=== PATIENT | female | born 1940 | race Caucasian/White ===

== ENCOUNTER 2017-04-11 16:08 | Inpatient (IN) | payer MEDICARE, OTHER ==
[~2017-04-11] VITALS: Ht 147.3 cm; Wt 55.0 kg
[~2017-04-11 16:08] MED LIST: AZOP1OP10 BOTH EYES; BRIM10DR2 BOTH EYES; DEXT1DRO6 OP; LOSA50TA6 PO; TRAV2.5D BOTH EYES
--- NOTE | 2017-04-11 17:34 | HP ---
Date/Time of Note Date/Time of Note DATE: 04/11/17 TIME: 17:20 Assessment/Plan VTE Prophylaxis VTE Prophylaxis Intervention: LMWH Assessment/Plan Problems: (1) Glaucoma Status: Chronic Comment: Cont. home drops (2) Essential (primary) hypertension Status: Chronic Comment: Cont. home med. Add meds as needed. Defer to cardiology (3) Type 2 diabetes mellitus without complications Status: Chronic Comment: Diet-controlled. Cont. low-carb diet (4) Syncope and collapse Status: Acute Comment: Needs EKG, ECHO, carotid duplex, MRI/MRA, cards consult (5) Weakness Status: Acute Comment: see above (6) Altered mental status Status: Acute Comment: see above but consider urosepsis as possible etiology (see below). If [facility] reporting UTI, must consider this as cause of all symptoms. (7) Urinary tract infection Status: Acute Comment: Obtain CBC, UA, urine C&S HPI/ROS Admit Date/Time Admit Date/Time 04/11/2017 @ 1730 Hx of Present Illness [place] [facility] [place] when she had witnessed episode of syncope. This occurred 3 times and pt. went to [facility]. There was diagnosed w/ syncope and sent home. However, pt. failed to mention subjective R facial numbness and weakness of RUE. At home over the last several days, pt. seems to have lost mental acuity. She seems lethargic and somewhat confused. Syncopal episodes continued. Made appt. w/ cards but was a week out. Came to my office today w/ this complaint. Notes that today [facility] called and said pt. has UTI. ROS Constitutional: disoriented Eyes: no complaints ENT: no complaints Respiratory: no complaints Cardiovascular: chest pain, lightheadedness Gastrointestinal: no complaints Genitourinary: no complaints Musculoskeletal: no complaints Neurologic: focal-weakness (RUE), syncope PMH/Family/Social Past Medical History Medical History: diabetes, hypertension, other (OA, glaucoma, cervical disc disease) Past Surgical History Past Surgical Hx: other (cystocele repair, bladder suspension, bunion reduction ) Family History Significant Family History: heart disease, diabetes, hypertension Social History b. Sp, in [place] 23 y, worked as a seamstress, now ret'd, , lives w/ daughter, 5 children, 12 GC Alcohol Use: none Smoking Status: Never smoker Drug Use: none Exam/Review of Systems Vital Signs Vitals Vital Signs Date Time Temp Pulse Resp B/P Pulse Ox O2 Delivery O2 Flow Rate FiO2 04/11/17 16:16 98.0 71 18 181/81 99 Exam Constitutional: alert, oriented, other (obese) Psych: nl mood/affect, no complaints Eyes: EOMI, PERRL, nl conjunctiva, nl lids, nl sclera ENMT: mucosa pink and moist, nl external ears & nose Neck: non-tender, supple, No bruits, No masses, No thyromegaly Respiratory: clear to auscultation, normal air movement Cardiovascular: nl pulses, regular rate and rhythm, No edema, No murmurs/extra sounds, No rub Gastrointestinal: bowel sounds, nl liver, spleen, non-tender, soft, No mass, No rebound or guarding Musculoskeletal: nl extremities to inspection Extremities: normal pulses, No clubbing, No cyanosis, No edema Neurological: RACQUET MAKER II-XII intact, nl mental status, nl speech, nl strength, other (exam is non-focal) KIN BARRERA MD Apr 11, 2017 17:30
[2017-04-11] MEDS ORDERED: IBUPROFEN 600 MG TAB PO PRN (21:30)
[2017-04-11] MEDS ORDERED: MAGNESIUM HYDROXIDE 30ML CUP PO PRN (21:30)
[2017-04-11] MEDS ORDERED: NACL 0.9% 3 ML SYG IV SCH (21:30)
[2017-04-11] MEDS ORDERED: ONDANSETRON 4 MG INJ IV PRN (21:30)
--- NOTE | 2017-04-11 22:50 | RADRPT ---
PROCEDURE: Carotid ultrasound CLINICAL INDICATION: Syncope, carotid bruits TECHNIQUE: Hensley scale, color doppler, spectral doppler ultrasound of the bilateral carotid and valeri tebral arteries. This study indirectly references the measurement of the distal ICA diameter as the denominator for s tenosis measurement. Validated velocity measurements with angiographic measurements, velocity criter ia are extrapolated from diameter data as defined by: *Cartoid artery stenosis: hensley-scale and Doppl er US diagnosis. Society of Radiologists in Ultrasound Consensus Conference. Radiology 2003; 229: 34 0-346. SRU Consensus Conference Criteria for the Diagnosis of Carotid Artery Stenosis* Degree of Stenosis, % ICA PSV, cm/sec Plaque Estimate, % ICA/CCA PSV Ratio Normal <125 None <2.0 <50 <125 <50 <2.0 50 69 125-230 >50 2.0-4.0 >70 but less than near occlusion >230 >50 <4.0 Near occlusion High, low, or undetectable Visible Variable Total occlusion Undetectable Visible, no detectable lumen Not applicable COMPARISON: No prior studies are available for comparison. FINDINGS: Location Right CCA53 - 62 cm/sec Prox ICA 40 cm/sec Mid ICA32 cm/sec Dist ICA39 cm/sec ECA47 cm/sec ICA/CCA0.8 Left CCA41 - 75 cm/sec Prox ICA 36 cm/sec Mid ICA34 cm/sec Dist ICA44 cm/sec ECA42 cm/sec ICA/CCA1.1 Plaque burden: No significant plaque is seen. Antegrade flow is seen within the vertebral arteries bilaterally. IMPRESSION: Normal examination. RPTAT: AADD .Peyman Messer MD, MD Date Time Electronically viewed and signed by .Peyman Messer MD, MD on 04/11/2017 22:49 .B/
--- NOTE | 2017-04-11 22:57 | ERD ---
ER Documentation Chief Complaint Chief Complaint SYNCOPE 2 DAYS AGO SEE AT [facility],UTI NOT STARTED ON ATB STILL DIZZY, WEAKNE HPI This is a 68-year-old female with a single episode 2 days ago and seen at [place]. Patient was discharged home. Also diagnosed V. tach not start antibiotics. Sent in by primary care admission for further evaluation and possible admission. ROS All systems reviewed and are negative except as per history of present illness. Medications Home Meds Reported Medications Dextran 70/Hypromellose (Artificial Tears) 1 Drp Droperette, 1 DRP OP Q15 for DRY EYES 12/03/15 Brinzolamide* (Azopt*) 1%-5 Ml Drops.susp, 1 DROP BOTH EYES TID, BOTTLE 12/03/15 Brimonidine/Timolol* (Combigan*) 10 Ml Drops, 1 DROP BOTH EYES QHS, EA 12/03/15 Travoprost* (Travatan Z*) 2.5 Ml Drops, 1 DROP BOTH EYES BID, #1 BOTTLE 12/03/15 Losartan Potassium* (Losartan Potassium*) 50 Mg Tablet, 50 MG PO DAILY, TAB 12/03/15 Allergies Allergies: Coded Allergies: No Known Allergy (Unverified , 12/03/15) PMhx/Soc History of Surgery: Yes (BLADDER LIFT 10 YRS AGO) Anesthesia Reaction: No Hx Neurological Disorder: No Hx Respiratory Disorders: No Hx Psychiatric Problems: No Hx Miscellaneous Medical Probl: No Hx Alcohol Use: No Hx Substance Use: No Hx Tobacco Use: No Smoking Status: Never smoker Physical Exam Vitals Vital Signs Date Time Temp Pulse Resp B/P Pulse Ox O2 Delivery O2 Flow Rate FiO2 04/11/17 16:16 98.0 71 18 181/81 99 Physical Exam Const: [] Head: Atraumatic Eyes: Normal Conjunctiva ENT: Normal External Ears, Nose and Mouth. Neck: Full range of motion..~ No meningismus. Resp: Clear to auscultation bilaterally Cardio: Regular rate and rhythm, no murmurs Abd: Soft, non tender, non distended. Normal bowel sounds Skin: No petechiae or rashes Back: No midline or flank tenderness Ext: No cyanosis, or edema Neur: Awake and alert Psych: Normal Mood and Affect Results 24 hrs Current Medications Medications (Trade) Dose Ordered Sig/Reese Route PRN Reason Start Time Stop Time Status Last Admin Dose Admin IV Flush (NS 3 ml) 3 ml PER PROTOCOL IV 04/11/17 21:30 Ondansetron HCl (Zofran Inj) 4 mg Q6H PRN IV NAUSEA AND/OR VOMITING 04/11/17 21:30 Ibuprofen (Motrin) 600 mg Q6H PRN PO PAIN LEVEL 1-3 OR FEVER 04/11/17 21:30 Magnesium Hydroxide (Milk Of Mag) 30 ml DAILY PRN PO CONSTIPATION 04/11/17 21:30 UNV Enoxaparin Sodium (Lovenox) 30 mg DAILY SC 04/12/17 09:00 Brimonidine/ Timolol (Combigan Oph) 1 drop QHS BOTH EYES 04/12/17 21:00 UNV Brinzolamide (Azopt) 1 drop TID BOTH EYES 04/12/17 09:00 UNV Losartan Potassium (Cozaar) 50 mg DAILY PO 04/12/17 09:00 UNV Travoprost (Travatan) 1 drop BID BOTH EYES 04/12/17 09:00 UNV Procedures/MDM EKG: Rate/Rhythm: [Normal Sinus Rhythm] QRS, ST, T-waves: [No changes consistent w/ acute ischemia] Impression: [No evidence of ischemia or arrhythmia] Chest X-ray 1V Interpreted by me: Soft Tissue: No acute abnormalities Bones: No acute abnormalities Mediastinum/Cardiac Silhouette/Lungs: [No acute abnormalities] Patient's syncopal symptoms are unstable at this time and require inpatient workup. No evidence of PE or dissection at this time but occult ischemia or fatal dysrhythmia cannot be ruled out. Departure Diagnosis: Primary Impression: Syncope and collapse Condition: Stable DELICIA KO Apr 11, 2017 22:57
[2017-04-11] MEDS ORDERED: ASPI-664 PO (23:08)
[2017-04-12] VITALS (10 sets, daily range): BP systolic 116–143; BP diastolic 68–90; PULSE 64–77; RESP 17–20; TEMP 98; Ht 147.3 cm; Wt 55.0 kg
--- NOTE | 2017-04-12 06:45 | RADRPT ---
PROCEDURE: XR Chest. CLINICAL INDICATION: Shortness of breath TECHNIQUE: A single AP view of the chest was obtained. COMPARISON: None. FINDINGS: No focal airspace opacification, pleural effusion or pneumothorax is seen. The cardiomediastinal si lhouette is upper limits of normal in size. Calcifications are seen within the aortic arch. The oss eous structures demonstrate senescent changes. IMPRESSION: 1. No radiographic evidence of acute cardiopulmonary disease. 2. The cardiac silhouette is upper limits of normal in size. 3. Aortic atherosclerosis. RPTAT: HH .Zoë Presley MD, MD Date Time Electronically viewed and signed by .Zoë Prseley MD, MD on 04/12/2017 06:45 .G/
[2017-04-12 07:12] LABS: BASOPHILS % 0.6 % (0.0-2.0); EOSINOPHILS # 0.2 10^3/ul (0.0-0.5); EOSINOPHILS % 2.7 % (0.0-7.0); HEMATOCRIT 33.1 % (37.0-47.0); HEMOGLOBIN 11.2 g/dl (12.0-16.0); LYMPHOCYTES # 2.1 10^3/ul (0.8-2.9); LYMPHOCYTES % 29.1 % (15.0-51.0); MEAN CORPUSCULAR HEMOGLOBIN 31.2 pg (29.0-33.0); MEAN CORPUSCULAR HGB CONC 33.8 g/dl (32.0-37.0); MEAN CORPUSCULAR VOLUME 92.2 fl (82.0-101.0); MONOCYTE # 0.7 10^3/ul (0.3-0.9); MONOCYTES % 9.9 % (0.0-11.0); NEUTROPHIL # 4.1 10^3/ul (1.6-7.5); NEUTROPHILS % 57.4 % (39.0-77.0); PLATELET COUNT 231 10^3/UL (140-415); RED BLOOD COUNT 3.59 10^6/ul (4.20-5.40); RED CELL DISTRIBUTION WIDTH 12.6 % (11.5-14.5); WHITE BLOOD COUNT 7.2 10^3/ul (4.8-10.8)
[2017-04-12 07:39] LABS: ALBUMIN 3.4 g/dl (3.3-4.9); BILIRUBIN,INDIRECT 0.5 mg/dl (0-1.1); BILIRUBIN,TOTAL 0.5 mg/dl (0.2-1.3); CALCIUM 9.2 mg/dl (8.4-10.2); CREATININE 0.77 mg/dl (0.44-1.00); MAGNESIUM 1.8 mg/dl (1.7-2.5); TOTAL PROTEIN 6.8 g/dl (6.1-8.1)
[2017-04-12 08:09] LABS: THYROID STIMULATING HORMONE 3.77 MIU/L (0.465-4.680)
[2017-04-12] MEDS: LATANOPROST 0.005% 2.5 ML OPH BOTH EYES SCH ×2 (09:00→20:21)
[2017-04-12 09:29] LABS: ADD UMIC YES; UR ASCORBIC ACID NEGATIVE (NEGATIVE); UR BACTERIA FEW /HPF (NONE SEEN); UR BILIRUBIN (Dip) NEGATIVE (NEGATIVE); UR BLOOD (Dip) NEGATIVE (NEGATIVE); UR CLARITY SLIGHTLY CLOUDY (CLEAR); UR COLOR YELLOW (YELLOW); UR GLUCOSE (Dip) NEGATIVE (NEGATIVE); UR KETONES (Dip) NEGATIVE (NEGATIVE); UR LEUKOCYTE ESTERASE (Dip) 2+ Leu/ul (NEGATIVE); UR MUCUS FEW /HPF (NONE SEEN); UR NITRITE (Dip) NEGATIVE (NEGATIVE); UR RBC 3 /HPF (0-5); UR SPECIFIC GRAVITY (Dip) 1.014 (1.003-1.030); UR SQUAMOUS EPITHELIAL CELL MODERATE /HPF (FEW); UR TOTAL PROTEIN (Dip) NEGATIVE (NEGATIVE); UR UROBILINOGEN (Dip) NEGATIVE (NEGATIVE)
[2017-04-12] MEDS: BRINZOLAMIDE 1% 10ML OPH BOTH EYES SCH ×3 (09:49→20:21)
[2017-04-12] MEDS: LOSARTAN 50 MG TAB PO SCH (09:49)
[2017-04-12] MEDS: BRIMONIDINE 0.2%-TIMOLOL 0.5% 5ML OPH BOTH EYES SCH ×2 (09:49→20:22)
[2017-04-12] MEDS: ENOXAPARIN 30 MG/0.3 ML SYG SC SCH (09:56)
[2017-04-12] MEDS ORDERED: ARTIFICIAL TEARS 15 ML OPH BOTH EYES SCH (10:30)
--- NOTE | 2017-04-12 13:20 | RADRPT ---
PROCEDURE: MRA Brain with and without contrast. CLINICAL INDICATION: Syncope, altered mental status TECHNIQUE: MR angiography of the brain was performed with and without intravenous contrast. Multi planar reconstructions, three-dimensional reconstructions, as well as maximal intensity projection i mages are produced and reviewed. CONTRAST: 10 ml Magnevist administered without adverse event. COMPARISON: None FINDINGS: Internal carotid arteries: Patent and normal in caliber. Anterior cerebral arteries: Right A1 segment is hypoplastic. Left A1 segment is dominant. Anterior communicating artery is visualized. Visualized A2 and A3 distribution of the anterior cerebral arteries are patent. Middle cerebral arteries: Both middle cerebral arteries as well as there branch vessels are patent and symmetric in appearance . Vertebral - basilar system: Both vertebral arteries are patent. There is codominance. Basilar artery is patent. Posterior cerebral arteries: Patent bilaterally. IMPRESSION: Normal MRA of the brain. No aneurysm, arteriovenous malformation, or abrupt vessel cutoff is identified. RPTAT: AADD .Peyman Messer MD, MD Date Time Electronically viewed and signed by .Peyman Messer MD, on 04/12/2017 13:20 .B/
--- NOTE | 2017-04-12 13:31 | RADRPT ---
PROCEDURE: MRI Brain without and with contrast. CLINICAL INDICATION: Syncope, altered mental status. TECHNIQUE: An MRI of the brain was performed utilizing the following sequences: Sagittal T1-weigh rosana, axial T2-weighted, axial FLAIR, axial T1, coronal GRE axial diffusion-weighted with ADC mapping . Following the uneventful administration of 10 cc Magnevist, postcontrast axial and coronal T1-weig hted images were obtained. Images were viewed on a PACS workstation. COMPARISON: No prior studies are available for comparison. FINDINGS: No diffusion weighted abnormalities are seen to suggest the presence of acute ischemia or recent inf arct. There is no intracranial hemorrhage, mass effect, or midline shift. No extra-axial fluid col lection is seen. The ventricles and sulci are mildly enlarged indicative of volume loss. Partially empty sella turcica is noted. There are scattered foci of T2 and FLAIR hyperintensity in the periventricular, deep, and subcortica l white matter, which are nonspecific in etiology but likely reflect chronic small vessel ischemic c hanges. The gradient echo images reveal no areas of susceptibility artifact to suggest blood degrad ation products or abnormal calcification. No abnormal intraparenchymal, meningeal or ependymal enha ncement is seen. No abnormal intracranial vascular flow voids are noted. The pituitary and sella reveal no abnormali ty. The suprasellar cistern is clear. The visualized paranasal sinuses demonstrate mild scattered m ucosal thickening mainly in ethmoid air cells. The mastoid air cells are clear. There is thinning of bilateral lens indicative of prior lens replacement. IMPRESSION: 1. No acute intracranial hemorrhage, infarction or mass. No intracranial enhancing abnormality. 2. Mild chronic small vessel ischemic changes. 3. Partially empty sella turcica. 4. Mild generalized cerebral volume loss. RPTAT: HH .Jenni Barcenas MD, MD Date Time Electronically viewed and signed by .Jenni Barcenas MD, MD on 04/12/2017 13:31 .N/
--- NOTE | 2017-04-12 17:01 | RADRPT ---
Echocardiogram Report Patient Name: AQUILES SANTACRUZ Gender: Female Date: 1940 Study Date: 12-Apr-2017 Machine Design Teacher: Bahman Chávez [facility] Location: 5538 Ref. Physician: KIN BARRERA Quality: Good Procedures: Transthoracic echocardiogram with complete 2D, M-Mode, and doppler examination. Indications: Evaluate Left Ventricular function. 2D/M Mode Doppler Measurement Value Normal Ranges Measurement Value Normal Ranges LVIDd 2D 3.6 3.5 - 5.6 cm AV Peak Tarik 1.4 m/sec LVIDs 2D 1.8 2.1 - 4.1 cm AV Peak PG 7.4 mmHg LVPWd 2D 0.9 0.6 - 1.1 cm LVOT Peak Tarik 0.9 m/sec IVSd 2D 1.0 0.6 - 1.1 cm LVOT Peak PG 3.6 mmHg AoR Diam 2D 2.8 2.0 - 3.7 cm MV E Peak Tarik 0.5 m/sec EDV 2D 56.2 cm3 MV A Peak Tarik 0.9 m/sec ESV 2D 5.7 cm3 MV E/A 0.6 LA Dimen 2D 2.1 2.3 - 4.0 cm MV Decel Time 209 msec MV Decel [place] 2 MV E/A 0.6 TR Peak Tarik 2.5 m/sec TR Peak PG 24.7 mmHg RVSP 28.0 mmHg Findings Left Ventricle: Normal left ventricular systolic function. Normal left ventricular cavity size. Normal left ventricular wall thickness. Ejection fraction is visually estimated at 5560 %. Tissue Doppler/Mitral Doppler indices are consistent with impaired relaxation (Stage I diastolic dysfunction). Right Ventricle: Normal right ventricular size. Normal right ventricular systolic function. Left Atrium: The left atrium is normal in size. Right Atrium: The right atrium is normal in size. Mitral Valve: Normal appearance and function of the mitral valve with trace physiologic regurgitation. Aortic Valve: No significant aortic stenosis or insufficiency. Aortic cusps appear mildly calcified. Tricuspid Valve: Normal appearance of the tricuspid valve. Estimated peak PA systolic pressure 28 mmHg. There is trace tricuspid regurgitation. Pulmonic Valve: Normal pulmonic valve appearance. Pericardium: Normal pericardium with no significant pericardial effusion. Aorta: Normal aortic root. IVC: Normal size and normal respiratory collapse consistent with normal right atrial pressure. Conclusions 1.Normal left ventricular systolic function. Normal left ventricular cavity size. Normal left ventricular wall thickness. Ejection fraction is visually estimated at 55-60 %. Tissue Doppler/Mitral Doppler indices are consistent with impaired relaxation (Stage I diastolic dysfunction). 2.Normal appearance and function of the mitral valve with trace physiologic regurgitation. 3.Normal appearance of the tricuspid valve. Estimated peak PA systolic pressure 28 mmHg. There is trace tricuspid regurgitation. Electronically Signed By: Oleg Schwartz 12-Apr-2017 17:00:23 -0800 Patient Name: AQUILES SANTACRUZ Study Date: 12-Apr-2017 [id number]
[2017-04-12] MEDS: CIPROFLOXACIN 500 MG TAB PO SCH (17:39)
--- NOTE | 2017-04-12 18:05 | PN ---
Date/Time of Note Date/Time of Note DATE: 04/12/17 TIME: 17:58 Assessment/Plan VTE Prophylaxis VTE Prophylaxis Intervention: LMWH Lines/Catheters IV Catheter Type (from Nrs): Saline Lock Assessment/Plan Problems: (1) Type 2 diabetes mellitus without complications Status: Chronic Comment: Diet controlled. A1c excellent (2) Essential (primary) hypertension Status: Chronic Comment: BP intermittently elevated. Defer to cards for improved control. (3) Glaucoma Status: Chronic Comment: Cont. drops from home (4) Weakness Status: Acute Comment: Improved today but still feels lightheaded. PT feels that pt. is stable w/o DME. Did teach pt. fall precautions (5) Altered mental status Status: Resolved Comment: Per daughter (6) Syncope and collapse Status: Acute Comment: Still lightheaded on standing. Poss. due to UTI. See below. (7) Diastolic dysfunction without heart failure Status: Chronic Comment: Found on ECHO. Defer to cards (8) Empty sella Status: Chronic Comment: Found on MRI. Unlikely to have pituitary dysfunction but will check cortisol as hypoadrenalism could be unlikely cause of patient's symptoms (9) Urinary tract infection Status: Acute Comment: Probable cause of pt.'s complaints. Will start cipro 500 mg bid and monitor for improvement in her physical symptoms. Await culture and titrate regimen to sensitivities. If not improving, consider neurology consultation Cont'd Hospitalization Reason: Symptoms not resolved. Initiating treatment for UTI. Subjective 24 Hr Interval Summary Constitutional: improved, no complaints Respiratory: no complaints Cardiovascular: lightheadedness (when stands up) Gastrointestinal: no complaints Genitourinary: no complaints Musculoskeletal: no complaints Neurologic: no complaints, No confusion (daughter feels pt. more herself mentally but still lightheaded when she stands up) Exam/Review of Systems Vital Signs Vitals VS - Last 72 Hours, by Label Date Time Temp Pulse Resp B/P Pulse Ox O2 Delivery O2 Flow Rate FiO2 04/12/17 16:35 98.4 67 20 116/68 96 04/12/17 16:05 77 04/12/17 12:08 65 04/12/17 12:06 98.7 66 20 125/73 99 04/12/17 08:08 98.1 66 20 140/90 100 04/12/17 08:01 64 04/12/17 04:05 65 04/12/17 04:00 98.6 87 17 143/75 99 04/12/17 02:06 98.0 66 14 135/74 96 Room Air 04/12/17 01:00 98.0 72 12 148/78 98 Room Air 04/12/17 00:00 98.0 64 15 165/84 99 Room Air 04/11/17 23:00 98.0 68 18 183/84 99 Room Air 04/11/17 16:16 98.0 71 18 181/81 99 Vital Signs Date Time Temp Pulse Resp B/P Pulse Ox O2 Delivery O2 Flow Rate FiO2 04/12/17 16:35 98.4 67 20 116/68 96 04/12/17 02:06 Room Air Exam Constitutional: alert, obese, oriented Psych: nl mood/affect, no complaints Respiratory: clear to auscultation, normal air movement Cardiovascular: nl pulses, regular rate and rhythm, No edema, No murmurs/extra sounds, No rub Gastrointestinal: bowel sounds, nl liver, spleen, non-tender, soft, No mass, No rebound or guarding Musculoskeletal: nl extremities to inspection Extremities: normal pulses, No clubbing, No cyanosis, No edema Neurological: TOPSTITCHER ZIGZAG II-XII intact, nl mental status, nl speech, nl strength Results Result Diagram: 04/12/1763604/12/1737 Results 24 hrs Laboratory Tests Test 04/12/17 06:37 04/12/17 07:15 White Blood Count 7.2 # Red Blood Count 3.59 L Hemoglobin 11.2 L Hematocrit 33.1 L Mean Corpuscular Volume 92.2 Mean Corpuscular Hemoglobin 31.2 Mean Corpuscular Hemoglobin Concent 33.8 Red Cell Distribution Width 12.6 Platelet Count 231 Mean Platelet Volume 10.0 # Neutrophils % 57.4 Lymphocytes % 29.1 Monocytes % 9.9 Eosinophils % 2.7 Basophils % 0.6 Nucleated Red Blood Cells % 0.0 Neutrophils # 4.1 Lymphocytes # 2.1 Monocytes # 0.7 Eosinophils # 0.2 Basophils # 0.0 Nucleated Red Blood Cells # 0.0 Sodium Level 142 Potassium Level 4.0 Chloride Level 107 Carbon Dioxide Level 26 Anion Gap 13 Blood Urea Nitrogen 18 Creatinine 0.77 Glucose Level 97 Hemoglobin A1c 5.9 Calcium Level 9.2 Magnesium Level 1.8 Total Bilirubin 0.5 Direct Bilirubin 0.00 Indirect Bilirubin 0.5 Aspartate Amino Transf (AST/SGOT) 21 Alanine Aminotransferase (ALT/SGPT) 26 Alkaline Phosphatase 55 Total Protein 6.8 Albumin 3.4 Globulin 3.40 H Albumin/Globulin Ratio 1.00 Thyroid Stimulating Hormone (TSH) 3.770 Urine Color YELLOW Urine Clarity SLIGHTLY CLOUDY A Urine pH 5.0 Urine Specific [place] 1.014 Urine Ketones NEGATIVE Urine Nitrite NEGATIVE Urine Bilirubin NEGATIVE Urine Urobilinogen NEGATIVE Urine Leukocyte Esterase 2+ H Urine Microscopic RBC 3 Urine Microscopic WBC 26 H Urine Squamous Epithelial Cells MODERATE Urine Bacteria FEW A Urine Mucus FEW A Urine Hemoglobin NEGATIVE Urine Glucose NEGATIVE Urine Total Protein NEGATIVE Medications Medications Current Medications Ondansetron HCl (Zofran Inj) 4 mg Q6H PRN IV NAUSEA AND/OR VOMITING; Start at 21:30 Ibuprofen (Motrin) 600 mg Q6H PRN PO PAIN LEVEL 1-3 OR FEVER; Start 04/11/17 at 21:30 Magnesium Hydroxide (Milk Of Mag) 30 ml DAILY PRN PO CONSTIPATION; Start 04/11 at 21:30 Enoxaparin Sodium (Lovenox) 30 mg DAILY SC Last administered on 04/12/17 09: 56; Admin Dose 30 MG; Start 04/12/17 at 09:00 Brimonidine/ Timolol (Combigan Oph) 1 drop QHS BOTH EYES Last administered on 04/12/17 09:49; Admin Dose 1 DROP; Start 04/12/17 at 21:00 Brinzolamide (Azopt) 1 drop TID BOTH EYES Last administered on 04/12/17 12:55 ; Admin Dose 1 DROP; Start 04/12/17 at 09:00 Losartan Potassium (Cozaar) 50 mg DAILY PO Last administered on 04/12/17 09: 49; Admin Dose 50 MG; Start 04/12/17 at 09:00 Latanoprost (Xalatan) 1 drop BID BOTH EYES ; Start 04/12/17 at 09:00 Eye Lubricant (Artificial Tears Oph) 2 drop Q10MIN BOTH EYES Last administered on 04/12/17 12:55; Admin Dose 2 DROP; Start 04/12/17 at 10:30 Ciprofloxacin (Cipro) 500 mg BID@,18 PO Last administered on 04/12/17 17:39 ; Admin Dose 500 MG; Start 04/12/17 at 18:00 KIN BARRERA MD Apr 12, 2017 18:05
--- NOTE | 2017-04-12 20:58 | CONS ---
DATE OF ADMISSION: 04/11/2017 DATE OF CONSULTATION: 04/12/2017 CARDIOLOGY CONSULTATION REASON FOR CONSULTATION: Syncope, recurrent. REQUESTING PHYSICIAN: Dr. Vásquez HISTORY OF PRESENT ILLNESS: Ms. Estes is a 76-year-old female with a history of diabetes mellitus, hypertension, hysterectomy, glaucoma, degenerative joint disease, who initially had recurrent episodes of syncope x2 to 3 while attending [employer] over the holiday weekend, after Thanksgiving. Patient states that she had felt the prodrome of chest pain, described as a pressure-like sensation, and associated dizziness while she was standing. The patient went to an outside hospital for evaluation and there had a normal hemoglobin 11.1, a creatinine 0.7 with a BUN of 21, a negative troponin, underwent a head CT that revealed no acute intracranial abnormality, and a chest x-ray revealing no acute abnormalities. The patient was then discharged to outpatient followup and had presented to her PMD's office and was lethargic, confused with questionable recurrent episodes of syncope, per family. Patient subsequently sent to the emergency department as she did see complaint at this time now, right facial numbness and right upper extremity weakness. Upon arrival in the emergency department, temperature 98, blood pressure 181/81, pulse 71, respiratory rate 18, satting 99%. The patient's labs revealed a white blood cell count of 7.2, hemoglobin 11.2, platelet count of 231, sodium 142, potassium 4.0, creatinine 0.7, BUN 18, magnesium 1.8, TSH of 3.7, UA positive. The patient underwent a carotid Doppler revealing no hemodynamically significant stenoses, and brain MRI/MRA revealing normal MRA of the brain, no aneurysm, AVMs or vessel cutoffs, and a partially empty sella turcica. Additionally, the patient had a chest x-ray that revealed no radiographic evidence of acute cardiopulmonary disease and the cardiac silhouette was upper limits of normal. The patient's electrocardiogram revealed normal sinus rhythm , rate of 71, normal axis, normal intervals with diffuse nonspecific ST and T- wave abnormalities. The patient has been admitted to the floor and since admit to floor, continues to complain of dizziness, denies ongoing facial numbness or weakness, or chest pain. The patient's blood pressures have been somewhat labile, most recently in the 140s and 120s with some initial episodes to the 180s. The patient does not have any troponins drawn here at this time. Additionally, the patient has been monitored on telemetry, revealing sinus rhythm, no significant tachy or bradyarrhythmias or pauses. PAST MEDICAL HISTORY: As above in HPI. MEDICATIONS CURRENTLY IN HOSPITAL: 1. Lovenox SQ daily. 2. Losartan 50 mg daily. 3. Xalatan eyedrops. 4. Zofran. 5. Ibuprofen p.r.n. 6. Milk of magnesia. 7. Combigan eyedrops. 8. Azopt eyedrops. ALLERGIES: NO KNOWN DRUG ALLERGIES. SOCIAL HISTORY: No tobacco, ETOH or illicit drug use. FAMILY HISTORY: No history of sudden cardiac or early CAD. REVIEW OF SYSTEMS: As above in HPI. CONSTITUTIONAL: No fevers, chills. PULMONARY: No current shortness of breath. CARDIOVASCULAR: Prior chest pain, none at this time. GASTROINTESTINAL: No vomiting. GENITOURINARY: No hematuria. MUSCULOSKELETAL: Degenerative joint disease, cervical disk disease. PSYCHIATRIC: No documented psych history. NEUROLOGIC: Syncopal episodes, recurrent. PHYSICAL EXAMINATION: VITAL SIGNS: Temperature of 98.7, blood pressure 125/73, pulse 66, respiratory rate 20, saturating 99%. GENERAL: The patient is alert, awake, minimally communicative. NECK: JVP of 8 to 9 cm of water. CHEST: Fair air movement throughout. HEART: Regular rate and rhythm. Normal S1, S2, I/ systolic murmur. ABDOMEN: Positive bowel sounds, soft. EXTREMITIES: No pitting edema ____ somewhat difficult to palpate distal pulses bilaterally, posterior tibial, dorsalis pedis. LABORATORY DATA: As above in HPI, with most recent from today, sodium 142, potassium 4.0, creatinine 0.7, hemoglobin A1c of 5.9, AST 21, ALT 26, TSH of 3.77, white blood cell count 7.2, hemoglobin 11.2, platelet count of 231. IMAGING STUDIES: As above in HPI. No further imaging studies for my review at this time. ECG: As above in HPI. No further electrocardiograms for my review at this time. IMPRESSION: 1. Syncope, recurrent. Rule out cardiac etiology. Rule out acute coronary syndrome. Rule out cardiac arrhythmia. 2. Chest pain described as a pressure-like sensation with negative troponin at an outside hospital. Assess for acute coronary syndrome. 3. Abnormal electrocardiogram with nonspecific ST-T abnormalities. Assess for acute coronary syndrome. 4. Hypertension, currently under reasonable control on monotherapy. 5. Diabetes mellitus. 6. Glaucoma. 7. Urinary tract infection. 8. Altered mental state. 9. Generalized weakness. 10. Right facial numbness and right upper extremity weakness. Rule out cerebrovascular accident with a negative MRI. RECOMMENDATIONS: 1. At this time, would maintain patient on telemetry monitoring to follow rhythm and rate control closely. 2. Would check the patient's orthostatic vital signs to ensure that orthostasis is not causing ongoing dizziness on standing. 3. We will check a 2D echocardiogram to further assess the patient's ejection fraction, wall motion, rule out any major valve abnormalities. 4. Complete the patient's rule out for myocardial infarction to ensure that the patient has not suffered an acute coronary syndrome lending to chest pain, syncopal episode, thus send troponins q.6 x3. 5. If patient rules out for myocardial infarction and continues to have ongoing symptoms, we will additionally consider a stress test to further assess for any possible significant obstructive coronary artery disease lending to symptoms of chest pain and recurrent syncopal episodes. 6. Continue patient's additional antibiotics for treatment of UTI and follow up all culture data. 7. Follow the patient's blood sugars closely. 8. Continue the patient's treatment for glaucoma. Thank you for allowing me to take part in the care of this patient, I will continue to follow along very closely with you with further recommendations to be made as the patient progresses through her inpatient hospital clinical course. Dictated By: CATALINO BIGGS/MARGUERITE Conf#: [id number] DID#: [id number] CC: KIN VÁSQUEZ MD;*EndCC* MTDD
[2017-04-13] VITALS (10 sets, daily range): BP systolic 102–147; BP diastolic 56–80; PULSE 63–90; RESP 17–18
[2017-04-13] MEDS: CIPROFLOXACIN 500 MG TAB PO SCH ×2 (05:21→18:18)
[2017-04-13 07:29] LABS: BASOPHILS % 0.6 % (0.0-2.0); EOSINOPHILS # 0.2 10^3/ul (0.0-0.5); EOSINOPHILS % 2.5 % (0.0-7.0); HEMATOCRIT 34.8 % (37.0-47.0); HEMOGLOBIN 11.5 g/dl (12.0-16.0); LYMPHOCYTES % 31.1 % (15.0-51.0); MEAN CORPUSCULAR HEMOGLOBIN 30.8 pg (29.0-33.0); MEAN CORPUSCULAR VOLUME 93.3 fl (82.0-101.0); MEAN PLATELET VOLUME 10.1 fl (7.4-10.4); MONOCYTE # 0.7 10^3/ul (0.3-0.9); MONOCYTES % 10.2 % (0.0-11.0); NEUTROPHIL # 3.5 10^3/ul (1.6-7.5); NEUTROPHILS % 55.3 % (39.0-77.0); PLATELET COUNT 231 10^3/UL (140-415); RED BLOOD COUNT 3.73 10^6/ul (4.20-5.40); RED CELL DISTRIBUTION WIDTH 12.6 % (11.5-14.5); WHITE BLOOD COUNT 6.4 10^3/ul (4.8-10.8)
[2017-04-13 08:03] LABS: CHOL/HDL RATIO 5.3 RATIO
[2017-04-13 08:11] LABS: CALCIUM 8.5 mg/dl (8.4-10.2); CREATININE 0.84 mg/dl (0.44-1.00); POTASSIUM 4.1 mmol/L (3.5-5.1)
[2017-04-13] MEDS: LOSARTAN 50 MG TAB PO SCH (09:39)
[2017-04-13] MEDS: LATANOPROST 0.005% 2.5 ML OPH BOTH EYES SCH ×2 (09:39→20:22)
[2017-04-13] MEDS: BRINZOLAMIDE 1% 10ML OPH BOTH EYES SCH ×3 (09:40→22:32)
[2017-04-13] MEDS: ENOXAPARIN 30 MG/0.3 ML SYG SC SCH (09:41)
[2017-04-13] MEDS ORDERED: REGADENOSON 0.4 MG/5 ML SYG ONE (12:07)
--- NOTE | 2017-04-13 12:39 | CONS ---
Date/Time of Note Date/Time of Note DATE: 04/13/17 TIME: 12:35 Assessment/Plan Assessment/Plan Chief Complaint/Hosp Course IMPRESSION: 1. Syncope, recurrent. Rule out cardiac etiology. Rule out acute coronary syndrome. Rule out cardiac arrhythmia.-negative trop x 3/NL EF by echo/No arrythmias by tele. Negative orthostatics 2. Chest pain described as a pressure-like sensation with negative troponin at an outside hospital. Assess for acute coronary syndrome.-negative trop x 3 3. Abnormal electrocardiogram with nonspecific ST-T abnormalities. Assess for acute coronary syndrome. 4. Hypertension, currently under reasonable control on monotherapy. 5. Diabetes mellitus. 6. Glaucoma. 7. Urinary tract infection. 8. Altered mental state. 9. Generalized weakness. 10. Right facial numbness and right upper extremity weakness. Rule out cerebrovascular accident with a negative MRI. Recc: -Tele -serial ecg's -Continue losartan -Lexiscan stress test today -Continue abx's and f/u cx data Problems: Consultation Date/Type/Reason Admit Date/Time Apr 11, 2017 at 21:19 Initial Consult Date 04/13/2017 Type of Consultation: cardiology Reason for Consultation syncope/chest pain Referring Provider: KIN BARRERA MD Exam/Review of Systems Vital Signs Vitals Vital Signs Date Time Temp Pulse Resp B/P Pulse Ox O2 Delivery O2 Flow Rate FiO2 04/13/17 11:30 98.2 71 17 146/71 96 04/12/17 02:06 Room Air Intake and Output 04/12/17 04/12/17 04/13/17 15:00 23:00 07:00 Intake Total 920 ml 220 ml Balance 920 ml 220 ml Exam Review of Systems: CONSTITUTIONAL: No fevers, chills. PULMONARY: No sob CARDIOVASCULAR: No chest pain/palpitations GASTROINTESTINAL: No nausea/vomiting. GENITOURINARY: No hematuria/dysuria. MUSCULOSKELETAL: No myagias/arthalgias. PSYCHIATRIC: The patient denies depression. NEUROLOGIC: No weakness Constitutional: alert Psych: confusion, no complaints Head: normocephalic ENMT: mucosa pink and moist Neck: jvd (8 cm water), supple Respiratory: diminished breath sounds (at bases/B) Cardiovascular: regular rate and rhythm Gastrointestinal: non-tender, soft Musculoskeletal: muscle weakness (mild generalized) Extremities: edema (none) Neurological: lethargic Results Result Diagram: 04/13/17 0707 04/13/17 0707 Results 24 hrs Laboratory Tests Test 04/12/17 17:49 04/13/17 00:37 04/13/17 07:07 Troponin I < 0.012 < 0.012 < 0.012 White Blood Count 6.4 Red Blood Count 3.73 L Hemoglobin 11.5 L Hematocrit 34.8 L Mean Corpuscular Volume 93.3 Mean Corpuscular Hemoglobin 30.8 Mean Corpuscular Hemoglobin Concent 33.0 Red Cell Distribution Width 12.6 Platelet Count 231 Mean Platelet Volume 10.1 Neutrophils % 55.3 Lymphocytes % 31.1 Monocytes % 10.2 Eosinophils % 2.5 Basophils % 0.6 Nucleated Red Blood Cells % 0.0 Neutrophils # 3.5 Lymphocytes # 2.0 Monocytes # 0.7 Eosinophils # 0.2 Basophils # 0.0 Nucleated Red Blood Cells # 0.0 Sodium Level 138 Potassium Level 4.1 Chloride Level 105 Carbon Dioxide Level 23 Anion Gap 14 Blood Urea Nitrogen 23 H Creatinine 0.84 Glucose Level 97 Calcium Level 8.5 Triglycerides Level 105 Cholesterol Level 155 LDL Cholesterol, Calculated 105 HDL Cholesterol 29 L Cholesterol/HDL Ratio 5.3 Random Cortisol 15.3 Medications Medications Current Medications Ondansetron HCl (Zofran Inj) 4 mg Q6H PRN IV NAUSEA AND/OR VOMITING; Start at 21:30 Ibuprofen (Motrin) 600 mg Q6H PRN PO PAIN LEVEL 1-3 OR FEVER; Start 04/11/17 at 21:30 Magnesium Hydroxide (Milk Of Mag) 30 ml DAILY PRN PO CONSTIPATION; Start 04/11 at 21:30 Enoxaparin Sodium (Lovenox) 30 mg DAILY SC Last administered on 04/13/17 09: 41; Admin Dose 30 MG; Start 04/12/17 at 09:00 Brimonidine/ Timolol (Combigan Oph) 1 drop QHS BOTH EYES Last administered on 04/12/17 20:22; Admin Dose 1 DROP; Start 04/12/17 at 21:00 Brinzolamide (Azopt) 1 drop TID BOTH EYES Last administered on 04/13/17 09:40 ; Admin Dose 1 DROP; Start 04/12/17 at 09:00 Losartan Potassium (Cozaar) 50 mg DAILY PO Last administered on 04/13/17 09: 39; Admin Dose 50 MG; Start 04/12/17 at 09:00 Latanoprost (Xalatan) 1 drop BID BOTH EYES Last administered on 04/13/17 09: 39; Admin Dose 1 DROP; Start 04/12/17 at 09:00 Eye Lubricant (Artificial Tears Oph) 2 drop Q10MIN BOTH EYES Last administered on 04/12/17 12:55; Admin Dose 2 DROP; Start 04/12/17 at 10:30 Ciprofloxacin (Cipro) 500 mg BID@06,18 PO Last administered on 04/13/17 05:21 ; Admin Dose 500 MG; Start 04/12/17 at 18:00 CATALINO FLORES Apr 13, 2017 12:39
--- NOTE | 2017-04-13 13:00 | CARRPT ---
DATE OF PROCEDURE: 04/13/2017 TYPE OF PROCEDURE: Lexiscan Cardiolite stress test, electrocardiogram portion. REFERRING PHYSICIAN: Dr. Reilly Vásquez. ATTENDING PHYSICIAN: Catalino Schwartz MD INDICATION: Chest pain, syncope, assess for ischemia. BASELINE VITAL SIGNS AND ELECTROCARDIOGRAM: Pulse 62, blood pressure 166/80. Electrocardiogram rev eals normal sinus rhythm, rate of 67, normal axis, normal intervals with diffuse nonspecific ST-T ab normalities. PROCEDURE: The patient underwent standard Lexiscan infusion; following over 10 seconds followed by radiolabeled tracer. The patient's test was stopped due to completion of protocol. Maximal achieve d blood pressure during the test 162/83. Maximum heart rate during the test 90. ELECTROCARDIOGRAM FINDINGS: The patient did not develop any new Lexiscan-induced ST or T-wave hopper es from baseline abnormalities. No documented PVCs. SYMPTOMS: The patient had no complaints of chest or shortness breath during stress testing. Positi ve headache that resolved in recovery. IMPRESSION: 1. No Lexiscan-induced ST or T-wave changes from baseline abnormalities diagnostic for ischemia. 2. No complaints of chest pain or shortness of breath during stress testing. 3. No documented premature ventricular contractions during stress testing. 4. Report of nuclear images to follow in separate dictation. Dictated By: CATALINO BIGGS/MARGUERITE Conf#: [id number] DID#: [id number] CC: REILLY VÁSQUEZ MD;*EndCC*
--- NOTE | 2017-04-13 15:10 | RADRPT ---
PROCEDURE: Lexiscan myocardial perfusion study CLINICAL INDICATION: 76 -year-old patient abnormal EKG, complaining of chest pain. TECHNIQUE: Lexiscan 0.4 mg intravenously separate acquisition gated myocardial perfusion SPECT usi ng Tc 99m Myoview 26.3 mCi intravenously at stress and Tc-99m Myoview, 9.5 mCi intravenously at rest was performed using the rest/stress sequence. Poststress Myoview SPECT images were obtained in the supine position. COMPARISON: No prior studies. FINDINGS: Perfusion images reveal no evidence of perfusion defects. Lexiscan post stress gated SPECT images demonstrate no wall motion abnormalities. IMPRESSION: 1. No evidence of perfusion defects. 2. No wall motion abnormalities. 3. The left ventricle ejection fraction at stress is greater than 70%. A call report was made to Dr. Schwartz at 03:07 p.m. on April 13, 2017. RPTAT: HH .Michelle Rodriguez MD, MD Date Time Electronically viewed and signed by .Michelle Rodriguez MD, on 04/13/2017 15:10 .L/
--- NOTE | 2017-04-13 15:12 | RADRPT ---
Vent Rate: 71 bpm RR Interval: 0 msec DC Interval: 172 msec QRS Duration: 66 msec QT Interval: 426 msec QTC Interval: 462 msec P-R-T [place]: 41 - -27 - 15 degrees Normal sinus rhythm Normal ECG Electronically Signed By: Reilly Hayes [id number]
--- NOTE | 2017-04-13 15:16 | RADRPT ---
Vent Rate: 67 bpm RR Interval: 0 msec SC Interval: 186 msec QRS Duration: 68 msec QT Interval: 438 msec QTC Interval: 462 msec P-R-T [place]: 28 - -15 - 30 degrees Normal sinus rhythm Normal ECG Electronically Signed By: Reilly Hayes [id number]
--- NOTE | 2017-04-13 18:17 | PN ---
Date/Time of Note Date/Time of Note DATE: 04/13/17 TIME: 18:11 Assessment/Plan VTE Prophylaxis VTE Prophylaxis Intervention: LMWH Lines/Catheters IV [facility] Saline Lock Assessment/Plan Problems: (1) Glaucoma Status: Chronic Comment: Cont. drops (2) Essential (primary) hypertension Status: Chronic Comment: Cont. losartan (3) Type 2 diabetes mellitus without complications Status: Chronic Comment: Cont. diet control (4) Empty sella Status: Chronic Comment: Cortisol was normal. No evidence adrenal insufficiency (5) Diastolic dysfunction without heart failure Status: Chronic Comment: Good cardiac function on spect scan. Defer to cards (6) Syncope and collapse Status: Resolved (7) Weakness Status: Resolved (8) Urinary tract infection Status: Acute Comment: Started treatment for UTI last night. Culture growing gram (-) rods. Await ID and sensitivity. However, pt. seems to be responding to cipro. Likely all of her symptoms were due to systemic effects of UTI. Will continue cipro for now. Reeval tomorrow. If still asymptomatic, likely d/c home. Cont'd Hospitalization Reason: Observe for clinical improvement on antibiotics. If well tomorrow, d/c Subjective 24 Hr Interval Summary Constitutional: improved (markedly, feels back to normal), no complaints Respiratory: no complaints Cardiovascular: no complaints, No lightheadedness Gastrointestinal: no complaints Genitourinary: no complaints Musculoskeletal: no complaints Neurologic: no complaints, No confusion, No syncope Exam/Review of Systems Vital Signs Vitals VS - Last 72 Hours, by Label Date Time Temp Pulse Resp B/P Pulse Ox O2 Delivery O2 Flow Rate FiO2 04/13/17 16:21 97.5 74 17 139/73 98 04/13/17 16:11 86 04/13/17 11:30 98.2 71 17 146/71 96 04/13/17 08:09 64 04/13/17 08:00 97.9 68 17 136/70 96 04/13/17 05:30 79 147/73 143/80 147/70 04/13/17 04:00 63 04/13/17 04:00 98.2 63 17 102/58 100 04/13/17 00:00 74 04/13/17 00:00 98.4 66 18 105/56 100 04/12/17 20:00 72 04/12/17 20:00 98.0 75 17 121/82 99 04/12/17 16:35 98.4 67 20 116/68 96 04/12/17 16:05 77 04/12/17 12:08 65 04/12/17 12:06 98.7 66 20 125/73 99 04/12/17 08:08 98.1 66 20 140/90 100 04/12/17 08:01 64 04/12/17 04:05 65 04/12/17 04:00 98.6 87 17 143/75 99 04/12/17 02:06 98.0 66 14 135/74 96 Room Air 04/12/17 01:00 98.0 72 12 148/78 98 Room Air 04/12/17 00:00 98.0 64 15 165/84 99 Room Air 04/11/17 23:00 98.0 68 18 183/84 99 Room Air 04/11/17 16:16 98.0 71 18 181/81 99 Vital Signs Date Time Temp Pulse Resp B/P Pulse Ox O2 Delivery O2 Flow Rate FiO2 04/13/17 16:21 97.5 74 17 139/73 98 04/12/17 02:06 Room Air Intake and Output 04/12/17 04/12/17 04/13/17 15:00 23:00 07:00 Intake Total 920 ml 220 ml Balance 920 ml 220 ml Exam Constitutional: alert, obese, oriented Psych: nl mood/affect, no complaints Respiratory: clear to auscultation, normal air movement Cardiovascular: nl pulses, regular rate and rhythm, No edema, No murmurs/extra sounds, No rub Gastrointestinal: bowel sounds, nl liver, spleen, non-tender, soft, No mass, No rebound or guarding Extremities: normal pulses, No clubbing, No cyanosis, No edema Neurological: LEAN FACILITATOR II-XII intact, nl mental status, nl speech, nl strength Results Result Diagram: 04/13/1770604/13/17 0707 Results 24 hrs Laboratory Tests Test 04/13/17 00:37 04/13/17 07:07 Troponin I < 0.012 < 0.012 White Blood Count 6.4 Red Blood Count 3.73 L Hemoglobin 11.5 L Hematocrit 34.8 L Mean Corpuscular Volume 93.3 Mean Corpuscular Hemoglobin 30.8 Mean Corpuscular Hemoglobin Concent 33.0 Red Cell Distribution Width 12.6 Platelet Count 231 Mean Platelet Volume 10.1 Neutrophils % 55.3 Lymphocytes % 31.1 Monocytes % 10.2 Eosinophils % 2.5 Basophils % 0.6 Nucleated Red Blood Cells % 0.0 Neutrophils # 3.5 Lymphocytes # 2.0 Monocytes # 0.7 Eosinophils # 0.2 Basophils # 0.0 Nucleated Red Blood Cells # 0.0 Sodium Level 138 Potassium Level 4.1 Chloride Level 105 Carbon Dioxide Level 23 Anion Gap 14 Blood Urea Nitrogen 23 H Creatinine 0.84 Glucose Level 97 Calcium Level 8.5 Triglycerides Level 105 Cholesterol Level 155 LDL Cholesterol, Calculated 105 HDL Cholesterol 29 L Cholesterol/HDL Ratio 5.3 Random Cortisol 15.3 Medications Medications Current Medications Ondansetron HCl (Zofran Inj) 4 mg Q6H PRN IV NAUSEA AND/OR VOMITING; Start at 21:30 Ibuprofen (Motrin) 600 mg Q6H PRN PO PAIN LEVEL 1-3 OR FEVER; Start 04/11/17 at 21:30 Magnesium Hydroxide (Milk Of Mag) 30 ml DAILY PRN PO CONSTIPATION; Start 04/11 at 21:30 Enoxaparin Sodium (Lovenox) 30 mg DAILY SC Last administered on 04/13/17 09: 41; Admin Dose 30 MG; Start 04/12/17 at 09:00 Brimonidine/ Timolol (Combigan Oph) 1 drop QHS BOTH EYES Last administered on 04/12/17 20:22; Admin Dose 1 DROP; Start 04/12/17 at 21:00 Brinzolamide (Azopt) 1 drop TID BOTH EYES Last administered on 04/13/17 09:40 ; Admin Dose 1 DROP; Start 04/12/17 at 09:00 Losartan Potassium (Cozaar) 50 mg DAILY PO Last administered on 04/13/17 09: 39; Admin Dose 50 MG; Start 04/12/17 at 09:00 Latanoprost (Xalatan) 1 drop BID BOTH EYES Last administered on 04/13/17 09: 39; Admin Dose 1 DROP; Start 04/12/17 at 09:00 Eye Lubricant (Artificial Tears Oph) 2 drop Q10MIN BOTH EYES Last administered on 04/12/17 12:55; Admin Dose 2 DROP; Start 04/12/17 at 10:30 Ciprofloxacin (Cipro) 500 mg BID@06,18 PO Last administered on 04/13/17t 05:21 ; Admin Dose 500 MG; Start 04/12/17 at 18:00 KIN BARRERA MD Apr 13, 2017 18:17
[2017-04-13] MEDS: BRIMONIDINE 0.2%-TIMOLOL 0.5% 5ML OPH BOTH EYES SCH (20:22)
[2017-04-14] VITALS (10 sets, daily range): BP systolic 110–146; BP diastolic 63–77; PULSE 66–79; RESP 18–20
[2017-04-14] MEDS: CIPROFLOXACIN 500 MG TAB PO SCH ×2 (05:26→17:09)
[2017-04-14 06:36] LABS: BASOPHILS % 0.6 % (0.0-2.0); EOSINOPHILS # 0.2 10^3/ul (0.0-0.5); EOSINOPHILS % 2.8 % (0.0-7.0); HEMATOCRIT 34.3 % (37.0-47.0); HEMOGLOBIN 11.5 g/dl (12.0-16.0); LYMPHOCYTES # 2.4 10^3/ul (0.8-2.9); LYMPHOCYTES % 37.5 % (15.0-51.0); MEAN CORPUSCULAR HEMOGLOBIN 31.3 pg (29.0-33.0); MEAN CORPUSCULAR HGB CONC 33.5 g/dl (32.0-37.0); MEAN CORPUSCULAR VOLUME 93.5 fl (82.0-101.0); MONOCYTE # 0.7 10^3/ul (0.3-0.9); MONOCYTES % 11.1 % (0.0-11.0); NEUTROPHIL # 3.1 10^3/ul (1.6-7.5); NEUTROPHILS % 47.7 % (39.0-77.0); PLATELET COUNT 244 10^3/UL (140-415); RED BLOOD COUNT 3.67 10^6/ul (4.20-5.40); RED CELL DISTRIBUTION WIDTH 12.8 % (11.5-14.5); WHITE BLOOD COUNT 6.4 10^3/ul (4.8-10.8)
[2017-04-14 07:18] LABS: CALCIUM 8.9 mg/dl (8.4-10.2); CREATININE 0.95 mg/dl (0.44-1.00); POTASSIUM 4.4 mmol/L (3.5-5.1)
[2017-04-14] MEDS: BRINZOLAMIDE 1% 10ML OPH BOTH EYES SCH ×2 (09:23→12:56)
[2017-04-14] MEDS: LOSARTAN 50 MG TAB PO SCH (09:23)
[2017-04-14] MEDS: ENOXAPARIN 30 MG/0.3 ML SYG SC SCH (09:24)
[2017-04-14] MEDS: LATANOPROST 0.005% 2.5 ML OPH BOTH EYES SCH (09:29)
--- NOTE | 2017-04-14 15:40 | CONS ---
Date/Time of Note Date/Time of Note DATE: 04/14/17 TIME: 15:36 Assessment/Plan Assessment/Plan Chief Complaint/Hosp Course IMPRESSION: 1. Syncope, recurrent. Rule out cardiac etiology. Rule out acute coronary syndrome. Rule out cardiac arrhythmia.-negative trop x 3/NL EF by echo/No arrythmias by tele. Negative orthostatics 2. Chest pain described as a pressure-like sensation with negative troponin at an outside hospital. Assess for acute coronary syndrome.-negative trop x 3. Lexiscan negative for ischemia/no perfusion defects with NL EF 3. Abnormal electrocardiogram with nonspecific ST-T abnormalities. Assess for acute coronary syndrome. 4. Hypertension, currently under reasonable control on monotherapy with some mild lability 5. Diabetes mellitus. 6. Glaucoma. 7. Urinary tract infection-on cipro 8. Altered mental state-improving with treatment of UTI 9. Generalized weakness. 10. Right facial numbness and right upper extremity weakness-negative MRI, sx resolved Recc: -Tele -serial ecg's -Continue abx's for treatment of UTI -continue monotherapy with losartan for BP control which is reasonable -OK for d/c plannning from cardiac standpoint with outpatient f/u already scheduled Problems: Consultation Date/Type/Reason Admit Date/Time Apr 13, 2017 at 18:10 Initial Consult Date 04/13/2017 Type of Consultation: cardiology Reason for Consultation syncope Referring Provider: KIN BARRERA MD Exam/Review of Systems Vital Signs Vitals Vital Signs Date Time Temp Pulse Resp B/P Pulse Ox O2 Delivery O2 Flow Rate FiO2 04/14/17 12:05 79 04/14/17 11:34 97.8 19 133/63 97 04/12/17 02:06 Room Air Intake and Output 04/13/17 04/13/17 04/14/17 15:00 23:00 07:00 Intake Total 640 ml 220 ml Balance 640 ml 220 ml Exam Review of Systems: CONSTITUTIONAL: No fevers, chills. PULMONARY: No sob CARDIOVASCULAR: No chest pain/palpitations GASTROINTESTINAL: No nausea/vomiting. GENITOURINARY: No hematuria/dysuria. MUSCULOSKELETAL: No myagias/arthalgias. PSYCHIATRIC: The patient denies depression. NEUROLOGIC: No weakness Constitutional: alert Psych: no complaints Head: normocephalic ENMT: mucosa pink and moist Neck: jvd (8 cm water), supple Respiratory: clear to auscultation Cardiovascular: regular rate and rhythm Gastrointestinal: non-tender, soft Musculoskeletal: muscle tone (normal) Extremities: edema (none) Neurological: other (No focal deficits) Results Result Diagram: 04/14/17 0554 04/14/17 0554 Results 24 hrs Laboratory Tests Test 04/14/17 05:54 White Blood Count 6.4 Red Blood Count 3.67 L Hemoglobin 11.5 L Hematocrit 34.3 L Mean Corpuscular Volume 93.5 Mean Corpuscular Hemoglobin 31.3 Mean Corpuscular Hemoglobin Concent 33.5 Red Cell Distribution Width 12.8 Platelet Count 244 Mean Platelet Volume 10.0 Neutrophils % 47.7 Lymphocytes % 37.5 Monocytes % 11.1 H Eosinophils % 2.8 Basophils % 0.6 Nucleated Red Blood Cells % 0.0 Neutrophils # 3.1 Lymphocytes # 2.4 Monocytes # 0.7 Eosinophils # 0.2 Basophils # 0.0 Nucleated Red Blood Cells # 0.0 Sodium Level 141 Potassium Level 4.4 Chloride Level 107 Carbon Dioxide Level 24 Anion Gap 14 Blood Urea Nitrogen 23 H Creatinine 0.95 Glucose Level 102 Calcium Level 8.9 Medications Medications Current Medications Ondansetron HCl (Zofran Inj) 4 mg Q6H PRN IV NAUSEA AND/OR VOMITING Last administered on 04/14/17 11:10; Admin Dose 4 MG; Start 04/11/17 at 21:30 Ibuprofen (Motrin) 600 mg Q6H PRN PO PAIN LEVEL 1-3 OR FEVER Last administered on 04/14/17 11:09; Admin Dose 600 MG; Start 04/11/17 at 21:30 Magnesium Hydroxide (Milk Of Mag) 30 ml DAILY PRN PO CONSTIPATION; Start 04/11 at 21:30 Enoxaparin Sodium (Lovenox) 30 mg DAILY SC Last administered on 04/14/17 09:24 ; Admin Dose 30 MG; Start 04/12/17 at 09:00 Brimonidine/ Timolol (Combigan Oph) 1 drop QHS BOTH EYES Last administered on 04/13/17 20:22; Admin Dose 1 DROP; Start 04/12/17 at 21:00 Brinzolamide (Azopt) 1 drop TID BOTH EYES Last administered on 04/14/17 12:56 ; Admin Dose 1 DROP; Start 04/12/17 at 09:00 Losartan Potassium (Cozaar) 50 mg DAILY PO Last administered on 04/14/17 09:23 ; Admin Dose 50 MG; Start 04/12/17 at 09:00 Latanoprost (Xalatan) 1 drop BID BOTH EYES Last administered on 04/14/17 09:29 ; Admin Dose 1 DROP; Start 04/12/17 at 09:00 Eye Lubricant (Artificial Tears Oph) 2 drop Q10MIN BOTH EYES Last administered on 04/12/17 12:55; Admin Dose 2 DROP; Start 04/12/17 at 10:30 Ciprofloxacin (Cipro) 500 mg BID@06,18 PO Last administered on 04/14/17 05:26 ; Admin Dose 500 MG; Start 04/12/17 at 18:00 CATALINO FLORES Apr 14, 2017 15:40
--- NOTE | 2017-04-14 17:33 | PDOCDIS ---
Discharge Instructions DIAGNOSIS Discharge Diagnosis Urinary tract infection w/ mild delirium CONDITION Patient Condition: Good HOME CARE INSTRUCTIONS: Special Diet: Low-carb ACTIVITY: Activity Restrictions: No Restrictions Bathing Restrictions: Shower FOLLOW UP/APPOINTMENTS Follow-up Plan f/u w/ cardiology next week; f/u w/ Dr. Vásquez in 2-4 weeks KIN VÁSQUEZ MD Apr 14, 2017 17:33
[2017-04-14] MEDS ORDERED: DICL100G37 TOP (17:35)
[2017-04-14] MEDS ORDERED: CIPR500T4 PO (17:35)
[2017-04-14] MEDS ORDERED: IBUP-1542 PO (17:35)
--- NOTE | 2017-04-14 17:45 | DS ---
Date/Time of Note Date/Time of Note DATE: 04/14/17 TIME: 17:37 Discharge Summary Admission/Discharge Info Admit Date/Time Apr 12, 2017 at 18:10 Discharge Date/Time 04/14/17 @ 1730 Discharge Diagnosis Urinary tract infection w/ mild delirium Patient Condition: Good Consults Cardiology: Schwartz Procedures Transthoracic ECHO: 1. Normal left ventricular systolic function. Normal left ventricular cavity size. Normal left ventricular wall thickness. Ejection fraction is visually estimated at 55-60 %. Tissue Doppler/Mitral Doppler indices are consistent with impaired relaxation (Stage I diastolic dysfunction) . 2. Normal appearance and function of the mitral valve with trace physiologic regurgitation. 3. Normal appearance of the tricuspid valve. Estimated peak PA systolic pressure 28 mmHg. There is trace tricuspid regurgitation; Spect scan: 1. No Lexiscan-induced ST or T-wave changes from baseline abnormalities diagnostic for ischemia. 2. No complaints of chest pain or shortness of breath during stress testing. 3. No documented premature ventricular contractions during stress testing. 4. Report of nuclear images to follow in separate dictation; MRI/MRA brain: Normal MRA of the brain. No aneurysm, arteriovenous malformation, or abrupt vessel cutoff is identified. 1. No acute intracranial hemorrhage, infarction or mass. No intracranial enhancing abnormality. 2. Mild chronic small vessel ischemic changes. 3. Partially empty sella turcica. 4. Mild generalized cerebral volume loss. Carotid duplex study: Normal examination Hx of Present Illness Pt. in [facility] until 3 days ago when she had witnessed episode of syncope. This occurred 3 times and pt. went to [facility]. There was diagnosed w/ syncope and sent home. However, pt. failed to mention subjective R facial numbness and weakness of RUE. At home over the last several days, pt. seems to have lost mental acuity. She seems lethargic and somewhat confused. Syncopal episodes continued. Made appt. w/ cards but was a week out. Came to my office today w/ this complaint. Notes that today [facility] called and said pt. has UTI. Hospital Course On admission pt. had full work-up for her mental status and syncopal symptoms while a urine culture was pending. These included, as noted above, carotid duplex, MRI/MRA brain, transthoracic ECHO, and cardiac nuclear scan. All were essentially normal, although the ECHO did show grade one diastolic dysfunction. Once the urine was sent for culture, pt. was started on cipro w/ almost immediate improvement in her mental status. Dizziness and syncope resolved. Culture grew pansensitive E.coli. Pt. ready for d/c home and should continue cipro for a full week. Arranged for [facility] and family will arrange [facility]. Home Meds Active Scripts Diclofenac Sodium* (Voltaren* Gel) 1% -100 Gm Gel, 2 GM TOP QID Y for PAIN for 30 Days, #1 TUB 5 Refills Prov:KIN VÁSQUEZ MD 04/14/17 Ibuprofen* (Ibuprofen*) 600 Mg Tablet, 600 MG PO Q6H Y for PAIN LEVEL 1-3 OR FEVER for 30 Days, #90 TAB 5 Refills Prov:KIN VÁSQUEZ MD 04/14/17 Ciprofloxacin Hcl* (Ciprofloxacin Hcl*) 500 Mg Tablet, 500 MG PO BID@06,18 for 5 Days, #10 TAB 0 Refills Prov:KIN VÁSQUEZ MD 04/14/17 Reported Medications Aspirin* (Aspirin* EC) 81 Mg Tablet.dr, 81 MG PO DAILY, TAB 04/11/17 Dextran 70/Hypromellose (Artificial Tears) 1 Drp Droperette, 1 DRP OP Q15 for DRY EYES 12/03/15 Brinzolamide* (Azopt*) 1%-5 Ml Drops.susp, 1 DROP BOTH EYES TID, BOTTLE 12/03/15 Brimonidine/Timolol* (Combigan*) 10 Ml Drops, 1 DROP BOTH EYES QHS, EA 12/03/15 Travoprost* (Travatan Z*) 2.5 Ml Drops, 1 DROP BOTH EYES BID, #1 BOTTLE 12/03/15 Losartan Potassium* (Losartan Potassium*) 50 Mg Tablet, 50 MG PO DAILY, TAB 12/03/15 Follow-up Plan f/u w/ cardiology next week; f/u w/ Dr. Vásquez in 2-4 weeks Primary Care Provider Kin Vásquez MD Time spent on discharge: > 30 minutes Pending Labs Laboratory Tests Test 04/14/17 05:54 White Blood Count 6.410^3/ul (4.8-10.8) Red Blood Count 3.6710^6/ul (4.20-5.40) Hemoglobin 11.5g/dl (12.0-16.0) Hematocrit 34.3% (37.0-47.0) Mean Corpuscular Volume 93.5fl (82.0-101.0) Mean Corpuscular Hemoglobin 31.3pg (29.0-33.0) Mean Corpuscular Hemoglobin Concent 33.5g/dl (32.0-37.0) Red Cell Distribution Width 12.8% (11.5-14.5) Platelet Count 94624^3/UL (140-415) Mean Platelet Volume 10.0fl (7.4-10.4) Neutrophils % 47.7% (39.0-77.0) Lymphocytes % 37.5% (15.0-51.0) Monocytes % 11.1% (0.0-11.0) Eosinophils % 2.8% (0.0-7.0) Basophils % 0.6% (0.0-2.0) Nucleated Red Blood Cells % 0.0/100WBC (0.0-0.0) Neutrophils # 3.110^3/ul (1.6-7.5) Lymphocytes # 2.410^3/ul (0.8-2.9) Monocytes # 0.710^3/ul (0.3-0.9) Eosinophils # 0.210^3/ul (0.0-0.5) Basophils # 0.010^3/ul (0.0-0.1) Nucleated Red Blood Cells # 0.010^3/ul (0.0-0.0) Sodium Level 141mmol/L (135-144) Potassium Level 4.4mmol/L (3.5-5.1) Chloride Level 107mmol/L (97-110) Carbon Dioxide Level 24mmol/L (21-31) Anion Gap 14 (8-16) Blood Urea Nitrogen 23mg/dl (7-20) Creatinine 0.95mg/dl (0.44-1.00) Glucose Level 102mg/dl (70-220) Calcium Level 8.9mg/dl (8.4-10.2) KIN VÁSQUEZ MD Apr 14, 2017 17:44
== END 2017-04-14 18:55 | disposition home health service (06) | DRG 312 ==
LOC: E/R 16:08 → MS4 21:19 → OBSVTOIN 04-13 18:10 → UNDODISIN 04-14 16:09
PROVIDERS: ADMIT Internal Medicine; ATTEND Internal Medicine
DX: R55 Syncope and collapse (principal); N39.0 Urinary tract infection, site not specified; E11.9 Type 2 diabetes mellitus without complications; I10 Essential (primary) hypertension; R41.0 Disorientation, unspecified; R07.9 Chest pain, unspecified; H40.9 Unspecified glaucoma; R41.82 Altered mental status, unspecified; R20.0 Anesthesia of skin
CPT/HCPCS: 70545; 70552; 71010; 78452; 80048; 80053; 80061; 81001; 82533; 83036; 83735; 84443; 84484; 85025; 87086; 93005; 93017; 93306; 93880; 97161; G0378; A9500; A9505; J1650; J2405; J2785